=== PATIENT | female | born 2005 | race Caucasian/White ===

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

== ENCOUNTER 2023-01-11 14:27 | Emergency (ER) | payer BC ==
[~2023-01-11] VITALS: Ht 172.7 cm; Wt 101.9 kg
[2023-01-11] MEDS ORDERED: RT-RACEPINEPHRINE 2.25% 0.5 ML VIAL ONE (14:34)
--- NOTE | 2023-01-11 14:34 | ED Cough/URI ---
General Chief Complaint: Respiratory Problems Stated Complaint: DIFFICULTY BREATHING History of Present Illness Date Seen by Provider: Jan 11, 2023 Time Seen by Provider: 14:34 Initial Comments 17-year-old female presents with difficulty breathing/stridor. Patient was just diagnosed with strep. Today she developed difficulty breathing and stridor. She presented to urgent care where they gave her 2 albuterol and a DuoNeb along with 16 mg of Decadron and 40 mg of Depo. Patient brought in by EMS. Allergies and Home Medications Allergies Coded Allergies: No Known Drug Allergies (Unverified , 05/27/10) Patient Home Medication List Home Medication List Reviewed: Yes Review of Systems Review of Systems Constitutional: see HPI Respiratory: short of breath, stridor Cardiovascular: No chest pain Gastrointestinal: nausea, vomiting Genitourinary: no symptoms reported Musculoskeletal: no symptoms reported Skin: no symptoms reported Psychiatric/Neurological: No Symptoms Reported Past Wrjeffi-Dtibgo-Bgozdo Hx Immunizations Up To Date First/Initial COVID19 Vaccinat: x2 Second COVID19 Vaccination Angel: x2 Third COVID19 Vaccination Date: x2 Past Medical History Surgery/Hospitalization HX: GI, UTI, ovarian cysts, pyelonephritis Surgeries: No Respiratory: No Cardiac: No Neurological: No Reproductive Disorders: No Genitourinary: Yes (Pyelonephritis) Musculoskeletal: No Endocrine: No HEENT: No Cancer: No Did You Recieve Any Treatments: No Psychosocial: No Integumentary: No Family Medical History Mom has Asthma, Diabetes, Lupus, and Raina Thyroiditis Physical Exam Vital Signs - First Documented 01/11/23 14:30 Temp 37.6 Pulse 117 Resp 38 B/P (MAP) 114/81 (92) Pulse Ox 98 O2 Delivery Room Air Capillary Refill : Height: '" Weight: 60lbs. oz. 27.158151us; 32.00 BMI Method:Stated General Appearance: moderate distress Respiratory: stridor, other (Mild tachypneic) Cardiovascular: normal peripheral pulses, regular rate, rhythm Neurologic/Psychiatric: alert, normal mood/affect, oriented x 3 Skin: normal color, warm/dry Progress/Results/Core Measures Suspected Sepsis SIRS Temperature: Pulse: Respiratory Rate: Laboratory Tests 01/11/23 14:30: White Blood Count 9.4 Blood Pressure / Mean: Laboratory Tests 01/11/23 14:30: Creatinine 0.76, Platelet Count 305, Total Bilirubin 0.2 Results/Orders Lab Results Laboratory Tests Test 01/11/23 14:30 Range/Units White Blood Count 9.4 4.3-11.0 10^3/uL Red Blood Count 4.52 3.80-5.11 10^6/uL Hemoglobin 13.2 11.5-16.0 g/dL Hematocrit 39 35-52 % Mean Corpuscular Volume 86 80-99 fL Mean Corpuscular Hemoglobin 29 25-34 pg Mean Corpuscular Hemoglobin Concent 34 32-36 g/dL Red Cell Distribution Width 11.8 10.0-14.5 % Platelet Count 305 130-400 10^3/uL Mean Platelet Volume 10.3 9.0-12.2 fL Immature Granulocyte % (Auto) 0 % Neutrophils (%) (Auto) 62 42-75 % Lymphocytes (%) (Auto) 33 12-44 % Monocytes (%) (Auto) 4 0-12 % Eosinophils (%) (Auto) 1 0-10 % Basophils (%) (Auto) 0 0-10 % Neutrophils # (Auto) 5.8 1.8-7.8 10^3/uL Lymphocytes # (Auto) 3.1 1.0-4.0 10^3/uL Monocytes # (Auto) 0.4 0.0-1.0 10^3/uL Eosinophils # (Auto) 0.1 0.0-0.3 10^3/uL Basophils # (Auto) 0.0 0.0-0.1 10^3/uL Immature Granulocyte # (Auto) 0.0 0.0-0.1 10^3/uL Sodium Level 137 135-145 MMOL/L Potassium Level 3.2 L 3.6-5.0 MMOL/L Chloride Level 108 H 98-107 MMOL/L Carbon Dioxide Level 13 L 21-32 MMOL/L Anion Gap 16 H 5-14 MMOL/L Blood Urea Nitrogen 8 7-18 MG/DL Creatinine 0.76 0.60-1.30 MG/DL Estimat Glomerular Filtration Rate 116 BUN/Creatinine Ratio 11 Glucose Level 204 H 70-105 MG/DL Calcium Level 9.3 8.5-10.1 MG/DL Corrected Calcium 9.1 8.5-10.1 MG/DL Total Bilirubin 0.2 0.1-1.0 MG/DL Aspartate Amino Transf (AST/SGOT) 21 5-34 U/L Alanine Aminotransferase (ALT/SGPT) 21 0-55 U/L Alkaline Phosphatase 93 40-136 U/L Total Protein 7.3 6.4-8.2 GM/DL Albumin 4.2 3.2-4.5 GM/DL My Orders Orders - EMILIANA OCONNOR DO Cbc And Automated Diff (01/11/23 14:32) Comprehensive Metabolic Panel (01/11/23 14:32) Racepinephrine 2.25% (Racepinephrine 2.2 (01/11/23 14:45) Hypertonic Saline 3% Neb (Rt-Hypertonic (01/11/23 14:45) Svn Small Volume Nebulizer (01/11/23 14:32) Ct Neck (Soft Tissue) W (01/11/23 14:32) Racepinephrine 2.25% (Racepinephrine 2.2 (01/11/23 14:34) Ondansetron Injection (Ondansetron Inj (01/11/23 14:45) Racepinephrine 2.25% (Racepinephrine 2.2 (01/11/23 14:45) Svn Small Volume Nebulizer (01/11/23 14:38) Ondansetron Injection (Ondansetron Inj (01/11/23 14:40) Iohexol Injection (Omnipaque 350 Mg/Ml 1 (01/11/23 14:45) Received Contrast (Hold Metformin- Contr (01/11/23 14:45) Ns (Ivpb) 100 Ml (Sodium Chloride 0.9% 1 (01/11/23 14:45) Chest Pa/Lat (2 View) (01/11/23 14:52) Ketorolac Injection (Ketorolac Injection (01/11/23 15:34) Penicillin G Proc/Rashawn 1.2 Mu (Penicilli (01/11/23 15:34) Medications Given in ED Current Medications Medications Dose Ordered Sig/Eulalia Route Start Time Stop Time Status Last Admin Dose Admin Epinephrine 0.5 ml ONCE ONCE INH 01/11/23 14:45 01/11/23 14:46 DC 01/11/23 14:46 0.5 ML Epinephrine 0.5 ml ONCE ONCE INH 01/11/23 14:45 01/11/23 14:46 DC 01/11/23 14:46 0.5 ML Iohexol 75 ml ONCE ONCE IV 01/11/23 14:45 01/11/23 14:46 DC 01/11/23 15:16 75 ML Ondansetron HCl 4 mg ONCE ONCE IVP 01/11/23 14:45 01/11/23 14:46 DC 01/11/23 14:52 4 MG Sodium Chloride 100 ml ONCE ONCE IV 01/11/23 14:45 01/11/23 14:46 DC 01/11/23 15:16 80 ML Sodium Chloride Hypertonic 15 ml ONCE ONCE IH 01/11/23 14:45 01/11/23 14:46 DC 01/11/23 14:45 15 ML Vital Signs/I&O 01/11/23 14:30 Temp 37.6 Pulse 117 Resp 38 B/P (MAP) 114/81 (92) Pulse Ox 98 O2 Delivery Room Air Capillary Refill : Progress Note : Progress Note Patient's diagnostic studies were ordered reviewed and interpreted by me. Patient's labs showed no acute findings. She was positive for strep at the urgent care. Patient has laryngitis/stridor. It did improve with some racemic epi. Is difficult to determine how much of it was stridor versus anxiousness and anxiety. Patient imaging was obtained and reviewed with no acute findings with final interpretation per radiology report. Due to patient being positive for strep I will give her Bicillin shot. She has received a significant mount of steroids and no further treatment will be indicated. Patient oxygen remained at 100% throughout her whole visit even when she was having her coughing and difficulty with stridor and laryngitis. Patient stable and discharged home Diagnostic Imaging Diagonstic Imaging: CT Comments Date of Exam:01/11/23 CT NECK (SOFT TISSUE) W PROCEDURE: CT neck soft tissue with contrast. TECHNIQUE: Multiple contiguous axial images were obtained through the neck after the administration of contrast. Auto Exposure Controls were utilized during the CT exam to meet ALARA standards for radiation dose reduction. INDICATION: Stridor, difficulty breathing. COMPARISON: None available. FINDINGS: Airway is widely patent. No enlarged tonsils. There is no abnormal soft tissue edema or thickening surrounding the airway. The epiglottis and base of the tongue are normal in appearance. The preepiglottic and paraglottic fat are normal. True vocal folds are normal in appearance. No cervical lymphadenopathy. The thyroid, bilateral submandibular, and bilateral parotid glands are normal. Major neck arteries and veins are grossly normal. Lung apices are clear. IMPRESSION: 1. Widely patent airway. 2. No tonsillar enlargement or features of peritonsillar abscess. Reviewed: Reviewed by Me, Reviewed/Discussed Diagonstic Imaging: Xray Comments Date of Exam:01/11/23 CHEST PA/LAT (2 VIEW) INDICATION: Cough. TIME OF EXAM: 3:08 p.m. COMPARISON: Correlation is made with prior chest 10/31/2011. FINDINGS: The heart size is normal. The pulmonary vascularity is unremarkable. The lungs are clear. No infiltrate, effusion or pneumothorax is detected. IMPRESSION: No acute cardiopulmonary process is detected. Reviewed: Reviewed by Me, Reviewed/Discussed Departure Impression Primary Impression: Laryngitis acute, spasmodic Additional Impression: Strep throat Disposition: HOME, SELF-CARE Condition: Stable Departure-Patient Inst. Referrals: MONIQUE MULLEN DO (PCP/Family) Primary Care Physician Patient Instructions: Laryngitis (DC), Strep Throat ED Add. Discharge Instructions: Maalox gargle to help with the discomfort. Tylenol ibuprofen for discomfort and fever. Iswp-[id number] sore throat lozenges as needed for discomfort. Salt water gargle to help with discomfort. All discharge instructions reviewed with patient and/or family. Voiced understanding. Scripts Ondansetron (Ondansetron Odt) 4 Mg Tab.rapdis 4 MG PO Q6H PRN for NAUSEA/VOMITING, #20 TAB 0 Refills Prov: EMILIANA OCONNOR DO 01/11/23 EMILIANA OCONNOR DO Jan 11, 2023 14:34
[2023-01-11 14:38] LABS: BASOPHILS % (AUTO) 0 % (0-10); EOSINOPHILS # (AUTO) 0.1 10^3/uL (0.0-0.3); EOSINOPHILS % (AUTO) 1 % (0-10); HEMATOCRIT 39 % (35-52); HEMOGLOBIN 13.2 g/dL (11.5-16.0); LYMPHOCYTES # (AUTO) 3.1 10^3/uL (1.0-4.0); LYMPHOCYTES % (AUTO) 33 % (12-44); MEAN CORPUSCULAR HEMOGLOBIN 29 pg (25-34); MEAN CORPUSCULAR HGB CONC 34 g/dL (32-36); MEAN CORPUSCULAR VOLUME 86 fL (80-99); MEAN PLATELET VOLUME 10.3 fL (9.0-12.2); MONOCYTES # (AUTO) 0.4 10^3/uL (0.0-1.0); MONOCYTES % (AUTO) 4 % (0-12); NEUTROPHILS # (AUTO) 5.8 10^3/uL (1.8-7.8); NEUTROPHILS % (AUTO) 62 % (42-75); PLATELET COUNT 305 10^3/uL (130-400); WHITE BLOOD COUNT 9.4 10^3/uL (4.3-11.0)
[2023-01-11] MEDS ORDERED: ONDANSETRON INJECTION 4 MG/2 ML (SDV) ONE (14:40)
[2023-01-11] MEDS ORDERED: HOLD METFORMIN - RECEIVED CONTRAST 20 ML VIAL IV SCH (14:45)
[2023-01-11] MEDS ORDERED: NS 100 ML (IVPB) BAG IV ONE (14:45)
[2023-01-11] MEDS ORDERED: RT-RACEPINEPHRINE 2.25% 0.5 ML VIAL INH ONE ×2 (14:45)
[2023-01-11] MEDS ORDERED: IOHEXOL 350 MG/ML 100 ML (OMNIPAQUE 350) VIAL IV ONE (14:45)
[2023-01-11] MEDS ORDERED: RT-HYPERTONIC SALINE 3% 4 ML NEB IH ONE ×2 (14:45)
[2023-01-11] MEDS ORDERED: ONDANSETRON INJECTION 4 MG/2 ML (SDV) IVP ONE (14:45)
[2023-01-11 14:48] LABS: ALBUMIN 4.2 GM/DL (3.2-4.5); POTASSIUM 3.2 MMOL/L (3.6-5.0)
[2023-01-11 14:49] LABS: CALCIUM 9.3 MG/DL (8.5-10.1)
[2023-01-11 14:50] LABS: TOTAL PROTEIN 7.3 GM/DL (6.4-8.2)
[2023-01-11 14:52] LABS: BILIRUBIN,TOTAL 0.2 MG/DL (0.1-1.0)
[2023-01-11 14:54] LABS: CREATININE SERUM 0.76 MG/DL (0.60-1.30)
--- NOTE | 2023-01-11 15:19 | Diagnostic Imaging Report ---
INDICATION: Cough. TIME OF EXAM: 3:08 p.m. COMPARISON: Correlation is made with prior chest 10/31/2011. FINDINGS: The heart size is normal. The pulmonary vascularity is unremarkable. The lungs are clear. No infiltrate, effusion or pneumothorax is detected. IMPRESSION: No acute cardiopulmonary process is detected. Dictated by: Dictated on workstation # [id number]
--- NOTE | 2023-01-11 15:25 | Diagnostic Imaging Report ---
PROCEDURE: CT neck soft tissue with contrast. TECHNIQUE: Multiple contiguous axial images were obtained through the neck after the administration of contrast. Auto Exposure Controls were utilized during the CT exam to meet ALARA standards for radiation dose reduction. INDICATION: Stridor, difficulty breathing. COMPARISON: None available. FINDINGS: Airway is widely patent. No enlarged tonsils. There is no abnormal soft tissue edema or thickening surrounding the airway. The epiglottis and base of the tongue are normal in appearance. The preepiglottic and paraglottic fat are normal. True vocal folds are normal in appearance. No cervical lymphadenopathy. The thyroid, bilateral submandibular, and bilateral parotid glands are normal. Major neck arteries and veins are grossly normal. Lung apices are clear. IMPRESSION: 1. Widely patent airway. 2. No tonsillar enlargement or features of peritonsillar abscess. Dictated by: Dictated on workstation # [id number]
[2023-01-11] MEDS ORDERED: KETOROLAC INJ 30 MG/ML VIAL IVP STA (15:34)
[2023-01-11] MEDS ORDERED: BENZATHINE IM STA (15:34)
[2023-01-11] MEDS ORDERED: PROCAINE IM STA (15:34)
[2023-01-11] MEDS ORDERED: ONDA4TAB11 PO (15:44)
[2023-01-11] MEDS ORDERED: PENICILLIN G Benzathine 1.2 M UNITS/2 ML SYR IM ONE (16:00)
[2023-01-11 16:22] VITALS: BP 131/93
== END 2023-01-11 16:24 | disposition home or self-care (01) ==
LOC: EDUNIT# 14:27 → ER 14:28
DX: J06.0 Acute laryngopharyngitis (principal)
CPT/HCPCS: 36415; 70491; 71046; 80053; 85025